=== PATIENT | male | born 1940 | race Caucasian/White ===

== ENCOUNTER 2019-03-07 06:35 | Emergency (ER) | payer MEDICARE, MEDICAID ==
--- NOTE | 2019-03-07 07:16 | XRay Report ---
CHEST 1 VIEW INDICATION / CLINICAL INFORMATION: Dyspnea. COMPARISON: 02/21/2014 FINDINGS: SUPPORT DEVICES: None. HEART / MEDIASTINUM: Heart size is normal. Thoracic aorta is tortuous. LUNGS / PLEURA: No significant pulmonary or pleural abnormality. No pneumothorax. ADDITIONAL FINDINGS: No significant additional findings. IMPRESSION: 1. No acute findings. Signer Name: Michael Lott MD Signed: 03/07/2019 7:11 AM Workstation Name: [id number]
--- NOTE | 2019-03-07 07:20 | Emergency Department Report ---
ED General Adult HPI - General Chief complaint: Dyspnea/Respdistress Stated complaint: BURAK Time Seen by Provider: 03/07/19 06:51 Source: EMS Mode of arrival: Stretcher Limitations: No Limitations - History of Present Illness Initial comments: 79-year-old [place] man who does not speak Irish arrives via EMS for evaluation of dizziness and shortness of breath. Paramedics tell me that they did not observe any apparent dyspnea. His saturation was 95/96% on room air. His work of breathing was normal. He has a son who serves as a loan operations specialist. He complains of some vague dizziness is not vertigo. The son saw him last about 4 days ago and he was well. The patient denies fever or chills. He's been only very occasionally coughing. - Related Data Home Medications Medication Instructions Recorded Confirmed Last Taken Amitriptyline [Elavil] 25 mg PO QHS 02/15/14 02/15/14 Unknown Loperamide [Imodium] 4 mg PO TID 02/15/14 02/15/14 Unknown Simvastatin [Zocor TAB] 10 mg PO QHS 02/15/14 02/15/14 Unknown Allergies Allergy/AdvReac Type Severity Reaction Status Date / Time No Known Allergies Allergy Unverified 02/15/14 20:03 ED Review of Systems ROS: Stated complaint: BURAK Other details as noted in HPI Comment: All other systems reviewed and negative ED Past Medical Hx - Past Medical History Previous Medical History?: Yes Hx Hypertension: Yes Hx CVA: Yes Hx Psychiatric Treatment: Yes (Pt on Ambien and Amitryptyline) Additional medical history: High cholesterol - Surgical History Past Surgical History?: Yes Additional Surgical History: Intestine surgery - Social History Smoking Status: Former Smoker Substance Use Type: None - Medications Home Medications: Home Medications Medication Instructions Recorded Confirmed Last Taken Type Amitriptyline [Elavil] 25 mg PO QHS 02/15/14 02/15/14 Unknown History Loperamide [Imodium] 4 mg PO TID 02/15/14 02/15/14 Unknown History Simvastatin [Zocor TAB] 10 mg PO QHS 02/15/14 02/15/14 Unknown History ED Physical Exam - General Limitations: Physical Limitation General appearance: alert, in no apparent distress - Head Head exam: Present: atraumatic, normocephalic - Eye Eye exam: Present: normal appearance. Absent: scleral icterus - ENT ENT exam: Present: mucous membranes moist - Neck Neck exam: Present: normal inspection. Absent: tenderness - Respiratory Respiratory exam: Present: normal lung sounds bilaterally. Absent: respiratory distress - Cardiovascular Cardiovascular Exam: Present: regular rate, normal rhythm. Absent: systolic murmur, diastolic murmur, rubs, gallop - GI/Abdominal GI/Abdominal exam: Present: soft, normal bowel sounds. 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 Absent: rash ED Course Vital Signs 03/07/19 03/07/19 03/07/19 06:48 06:51 07:01 Temperature 98.7 F Pulse Rate 87 105 H Respiratory 20 15 Rate Blood Pressure 132/64 Blood Pressure 132/64 [Left] O2 Sat by Pulse 96 97 96 Oximetry 03/07/19 03/07/19 03/07/19 07:22 07:30 07:46 Temperature Pulse Rate 111 H 110 H 84 Respiratory 17 14 10 L Rate Blood Pressure 132/64 Blood Pressure [Left] O2 Sat by Pulse 96 96 96 Oximetry 03/07/19 03/07/19 03/07/19 08:00 08:25 08:30 Temperature Pulse Rate 69 86 100 H Respiratory 15 15 Rate Blood Pressure 128/54 128/54 128/54 Blood Pressure [Left] O2 Sat by Pulse 95 98 Oximetry 03/07/19 03/07/19 03/07/19 08:46 09:00 09:16 Temperature Pulse Rate 80 73 79 Respiratory 18 17 15 Rate Blood Pressure 128/54 128/54 128/54 Blood Pressure [Left] O2 Sat by Pulse 95 97 97 Oximetry 03/07/19 03/07/19 03/07/19 09:30 09:46 10:16 Temperature Pulse Rate 67 79 100 H Respiratory 11 L 16 22 Rate Blood Pressure 128/54 128/54 142/72 Blood Pressure [Left] O2 Sat by Pulse 96 96 96 Oximetry 03/07/19 10:30 Temperature Pulse Rate Respiratory Rate Blood Pressure 142/72 Blood Pressure [Left] O2 Sat by Pulse 83 L Oximetry - Reevaluation(s) Reevaluation #1: She continues to be asymptomatic in the emergency department he has no coffee is no respiratory symptoms he is actually quite jovial and smiling. He is appropriate for outpatient management. Stress with family. They're ready to take him home. 03/07/19 11:16 03/07/19 11:17 ED Medical Decision Making - Lab Data Result diagrams: 03/07/19 07:15 03/07/19 07:15 Laboratory Results - last 24 hr 03/07/19 03/07/19 03/07/19 07:15 07:15 07:15 WBC 7.2 RBC 3.60 L Hgb 12.4 Hct 34.7 L MCV 97 H MCH 35 H MCHC 36 H RDW 13.7 Plt Count 188 Lymph % (Auto) 19.9 Gordon % (Auto) 4.6 Eos % (Auto) 7.2 H Baso % (Auto) 0.7 Lymph # 1.4 Gordon # 0.3 Eos # 0.5 H Baso # 0.0 Seg Neutrophils % 67.6 Seg Neutrophils # 4.8 PT 13.7 INR 1.08 APTT 29.2 D-Dimer 148.86 Sodium 141 Potassium 3.8 Chloride 101.4 Carbon Dioxide 23 Anion Gap 20 BUN 16 Creatinine 0.6 L Estimated GFR > 60 BUN/Creatinine Ratio 27 Glucose 128 H Lactic Acid Calcium 8.7 Magnesium Total Bilirubin Direct Bilirubin Indirect Bilirubin AST ALT Alkaline Phosphatase Total Creatine Kinase 200 H CK-MB (CK-2) 5.8 H CK-MB (CK-2) Rel Index 2.9 Troponin T < 0.010 Total Protein Albumin Albumin/Globulin Ratio 03/07/19 03/07/19 07:15 07:15 WBC RBC Hgb Hct MCV MCH MCHC RDW Plt Count Lymph % (Auto) Gordon % (Auto) Eos % (Auto) Baso % (Auto) Lymph # Gordon # Eos # Baso # Seg Neutrophils % Seg Neutrophils # PT INR APTT D-Dimer Sodium Potassium Chloride Carbon Dioxide Anion Gap BUN Creatinine Estimated GFR BUN/Creatinine Ratio Glucose Lactic Acid 0.90 Calcium Magnesium 2.00 Total Bilirubin 1.00 Direct Bilirubin 0.3 H Indirect Bilirubin 0.7 AST 16 ALT 8 Alkaline Phosphatase 68 Total Creatine Kinase CK-MB (CK-2) CK-MB (CK-2) Rel Index Troponin T Total Protein 8.6 H Albumin 4.2 Albumin/Globulin Ratio 1.0 - EKG Data -: EKG Interpreted by Me EKG shows normal: sinus rhythm, axis, intervals, QRS complexes, ST-T waves Rate: normal - EKG Data Interpretation: nonspecific ST-T wave vu - Radiology Data Radiology results: report reviewed, image reviewed Urologist states no acute process. However in comparison to films 2013 I am questioning the presence of slight increased markings, diagnosed pneumonia. CT the head old thalamic infarct no acute process Critical care attestation.: If time is entered above; I have spent that time in minutes in the direct care of this critically ill patient, excluding procedure time. ED Disposition Clinical Impression: Weakness Dyspnea Qualifiers: Dyspnea type: unspecified Qualified Code(s): R06.00 - Dyspnea, unspecified Disposition: DC- TO HOME OR SELFCARE Is pt being admited?: No Does the pt Need Aspirin: No Condition: Stable Instructions: Dyspnea (ED), Dizziness (ED) Additional Instructions: Follow up with PRIMARY CARE PROVIDER. CONTINUE USUAL MEDICATION WHICH SHOULD INCLUDE ASPIRIN. Turn any recurrent symptoms or acute change. Referrals: PRIMARY CARE, [Primary Care Provider] - 24 Hours Time of Disposition: 11:19
[2019-03-07 07:34] LABS: Basophils % (Auto) 0.7 % (0.0-1.8); Eosinophils # (Auto) 0.5 K/mm3 (0.0-0.4); Eosinophils % (Auto) 7.2 % (0.0-4.3); Hematocrit 34.7 % (35.5-45.6); Hemoglobin 12.4 gm/dl (11.8-15.2); Lymphocytes # (Auto) 1.4 K/mm3 (1.2-5.4); Lymphocytes % (Auto) 19.9 % (13.4-35.0); Mean Corpuscular HGB Conc 36 % (32-34); Mean Corpuscular Volume 97 fl (84-94); Monocytes # (Auto) 0.3 K/mm3 (0.0-0.8); Monocytes % (Auto) 4.6 % (0.0-7.3); Platelet Count 188 K/mm3 (140-440); Red Cell Distribution Width 13.7 % (13.2-15.2)
[2019-03-07 07:49] LABS: Creatine Kinase MB 5.8 ng/mL (0.0-4.0)
[2019-03-07 07:50] LABS: Albumin 4.2 g/dL (3.9-5); Bilirubin,Direct 0.3 mg/dL (0-0.2)
[2019-03-07 07:51] LABS: BUN/Creatinine Ratio 27; Blood Urea Nitrogen 16 mg/dL (9-20); Calcium 8.7 mg/dL (8.4-10.2); Hemolysis Index 7
[2019-03-07 07:54] LABS: INR 1.08 (0.87-1.13)
[2019-03-07 07:55] LABS: Partial Thromboplastin Time 29.2 Sec. (24.2-36.6)
--- NOTE | 2019-03-07 08:48 | Cat Scan Report ---
CT HEAD WITHOUT CONTRAST INDICATION / CLINICAL INFORMATION: vertigo. TECHNIQUE: All CT scans at this location are performed using CT dose reduction for ALARA by means of automated e xposure control. COMPARISON: Head CT 02/15/2014 and MRI brain 02/17/2014 FINDINGS: HEMORRHAGE: No evidence of intracranial hemorrhage or extra-axial fluid collection. EXTRA-AXIAL SPACES: Cortical sulci and sylvian fissures are enlarged reflecting a degree of parenchym al volume loss which is consistent with the patient's age 79 years. Basilar cisterns have an unremark able appearance. VENTRICULAR SYSTEM: The third and lateral ventricles are enlarged reflecting the presence of age rela obinna parenchymal volume loss. CEREBRAL PARENCHYMA: Periventricular and deep white matter lucency is observed. This is probably seco ndary to microvascular ischemic change. There is no indication of recent infarction. A remote small d eep infarction is seen in the lateral aspect of the right thalamus. This is unchanged. MIDLINE SHIFT OR HERNIATION: There is no mass effect. CEREBELLUM / BRAINSTEM: Brainstem and cerebellum have an unremarkable appearance. INTRACRANIAL VESSELS:Calcified atherosclerotic plaque is present along the course of the cavernous se gments of both internal carotid arteries. Similar findings are seen at the distal vertebral arteries. ORBITS: Patient is status post bilateral cataract surgery. The orbits have an otherwise unremarkable appearance. SOFT TISSUES of HEAD: No significant abnormality. CALVARIUM: Evaluation of bone windows reveals no abnormalities. PARANASAL SINUSES / MASTOID AIR CELLS: Paranasal sinuses are free from inflammatory mucosal disease. Mastoid air cells are normally pneumatized. ADDITIONAL FINDINGS: None. IMPRESSION: 1. Age-related involutional changes of parenchymal volume loss and microvascular ischemic change. 2. 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 3. No acute intracranial abnormality. Signer Name: Humphrey Garcia MD Signed: 03/07/2019 8:44 AM Workstation Name: [email or web address]
[2019-03-07 12:36] VITALS: BP 130/78
== END 2019-03-07 11:40 | disposition home or self-care (01) ==
LOC: ED 06:35
DX: R53.1 Weakness (principal); R06.00 Dyspnea, unspecified; I10 Essential (primary) hypertension; E78.00 Pure hypercholesterolemia, unspecified; Z87.891 Personal history of nicotine dependence; Z86.73 Personal history of transient ischemic attack (TIA), and cerebral infarction without residual deficits; Z98.890 Other specified postprocedural states
CPT/HCPCS: 36415; 70450; 71045; 80048; 80076; 82140; 82550; 82553; 83735; 84484; 85025; 85379; 85610; 85730; 93005; 93010